=== PATIENT | female | born 1995 | race African-American/Black ===

== ENCOUNTER 2017-04-10 15:42 | Emergency (ER) | payer SELFPAY ==
[~2017-04-10] VITALS: Ht 162.6 cm; Wt 100.0 kg
[~2017-04-10 15:42] MED LIST: NOCURR
[2017-04-10] MEDS ORDERED: BACITRACIN 0.9 GM PACKET OINTMENT TP ONE (17:15)
[2017-04-10] MEDS ORDERED: PERTUSS(ACELL),DIPH,TET VAC/PF 0.5 ML VIAL IM ONE (17:15)
[2017-04-10] MEDS ORDERED: ACETAMINOPHEN 325 MG TABLET PO ONE (17:15)
[2017-04-10 18:23] VITALS: BP 138/78
== END 2017-04-10 18:31 | disposition home or self-care (01) ==
LOC: EMS 15:43
DX: S61.256A Open bite of right little finger without damage to nail, initial encounter (principal); W50.3XXA Accidental bite by another person, initial encounter; Y93.89 Activity, other specified; Y92.89 Other specified places as the place of occurrence of the external cause; Y99.8 Other external cause status
CPT/HCPCS: 90471; 90715; 99284

== ENCOUNTER 2019-10-04 18:21 | Emergency (ER) | payer SELFPAY ==
[~2019-10-04] VITALS: Ht 170.2 cm; Wt 104.5 kg
[2019-10-04] MEDS ORDERED: KETOROLAC TROMETHAMINE 60 MG/2 ML VIAL IM ONE (20:15)
[2019-10-04 21:00] VITALS: BP 131/82
== END 2019-10-04 21:16 | disposition home or self-care (01) ==
LOC: EMS 18:23
DX: M25.511 Pain in right shoulder (principal); V43.62XA Car passenger injured in collision with other type car in traffic accident, initial encounter; Y93.89 Activity, other specified; Y92.89 Other specified places as the place of occurrence of the external cause; Y99.8 Other external cause status
CPT/HCPCS: 96372; 99283; J1885